=== PATIENT | female | born 1990 | race African-American/Black ===

== ENCOUNTER 2017-07-12 22:17 | Emergency (ER) | payer OTHER ==
[~2017-07-12] VITALS: Ht 149.9 cm; Wt 67.4 kg
[~2017-07-12 22:17] MED LIST: ADVAIR 100/501 DISK IH; BENTYL10 MG PO; CITALOPRAM HBR40 MG PO; CLARITIN10 M3 PO; CLEOCIN300 MG PO; DEPO-PROVER150 MG/ML IM; ERYTHROMYC1 APPLICAT LEFT EYE; FIORICET WI1 CAPSULE PO; FISH OIL 1,0001 EAC6 PO; INDERAL40 MG; LAYOLIS FE CHE1 EACH PO; NAPROSYN500 MG PO; NOHOMEMEDS; RANITIDINE HCL150 MG PO; SUDAFED 12-HOU120 MG PO; TESSALON PERLE100 MG PO; TRAMADOL HCL50 MG PO; VENTOLIN HFA18 GM IH; ZOFRAN ODT4 MG PO; ZOFRAN4 MG PO; ZYRTEC10 M2 PO
[2017-07-13 00:35] VITALS: BP 113/68
[2017-07-13] MEDS ORDERED: REGLAN10 MG PO (00:35)
== END 2017-07-13 00:40 | disposition home or self-care (01) ==
LOC: EME 22:17
DX: G43.909 Migraine, unspecified, not intractable, without status migrainosus (principal); J45.909 Unspecified asthma, uncomplicated; Z88.0 Allergy status to penicillin
CPT/HCPCS: 99281; 99284; J0780; J2765